=== PATIENT | male | born 1970 | race Caucasian/White ===

== ENCOUNTER 2018-08-22 20:16 | Emergency (ER) | payer SELFPAY ==
[~2018-08-22] VITALS: Ht 172.7 cm; Wt 79.4 kg
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
--- OUTSIDE RECORDS SUMMARY | 2018-08-22 20:20 | XMS REPORT ---
Author Author [facility] Address Unknown Phone Unavailable Care Team Providers Care Cnc Router Operator Name Role Phone Unavailable Unavailable Problems This patient has no known problems. Allergies, Adverse Reactions, Alerts This patient has no known allergies or adverse reactions. Medications This patient has no known medications. Encounters Start Date/Time End Date/Time Encounter Type Admission Type Attending [facility] Facility Care Department Encounter ID 2018-10-29 00:00:00 2018-10-29 00:00:00 Outpatient [facility] [id number] 2018-07-26 10:42:11 2018-07-26 10:42:11 Outpatient [facility] [id number] 2018-07-26 09:46:42 2018-07-26 09:46:42 Outpatient [facility] [id number]
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
--- NOTE | 2018-08-22 22:12 | Diagnostic Imaging Report ---
Exam: right foot 3 views History: pain Comparison: None. Findings: No fracture or malalignment. Joint spaces preserved. Plantar calcaneal spur. Impression: No acute osseous abnormality Signed by: Dr. Ed Wilcox M.D. on 08/22/2018 10:09 PM
[2018-08-23 01:59] VITALS: BP 138/89
== END 2018-08-22 22:36 | disposition home or self-care (01) ==
LOC: ER 20:16
DX: S90.31XA Contusion of right foot, initial encounter (principal); M79.671 Pain in right foot; W20.8XXA Other cause of strike by thrown, projected or falling object, initial encounter; Y92.008 Other place in unspecified non-institutional (private) residence as the place of occurrence of the external cause

== ENCOUNTER 2019-02-27 11:56 | Emergency (ER) | payer SELFPAY ==
[~2019-02-27] VITALS: Ht 172.7 cm; Wt 79.4 kg
[2019-02-27] MEDS ORDERED: TETANUS/DIPHTHERIA TOX ADULT 0.5 ML SYR IM ONE (12:30)
[2019-02-27] MEDS ORDERED: LIDOCAINE 1% W/EPINEPHRINE 20 ML VIAL INJ ONE (12:30)
[2019-02-27 12:48] VITALS: BP 130/78
[2019-02-27] MEDS ORDERED: BACITRACIN ZINC 0.9GM TP ONE (13:00)
== END 2019-02-27 13:25 | disposition home or self-care (01) ==
LOC: ER 11:56
DX: S81.011A Laceration without foreign body, right knee, initial encounter (principal); W45.8XXA Other foreign body or object entering through skin, initial encounter; Y93.19 Activity, other involving water and watercraft; Y92.828 Other wilderness area as the place of occurrence of the external cause
CPT/HCPCS: 90471; 90714; 99283

== ENCOUNTER 2021-10-28 15:51 | Emergency (ER) | payer SELFPAY ==
[~2021-10-28] VITALS: Ht 172.7 cm; Wt 79.4 kg
[2021-10-28] MEDS ORDERED: DIPHENHYDRAMINE HCL 25 MG CAP PO ONE (16:15)
[2021-10-28] MEDS ORDERED: FAMOTIDINE 20 MG TAB PO ONE (16:15)
[2021-10-28] MEDS ORDERED: DEXAMETHASONE SOD PHOS 10 MG/1 ML VIAL IM ONE (16:15)
== END 2021-10-28 16:53 | disposition home or self-care (01) ==
LOC: ER 15:55
DX: R21 Rash and other nonspecific skin eruption (principal); L25.9 Unspecified contact dermatitis, unspecified cause; E78.5 Hyperlipidemia, unspecified; M54.9 Dorsalgia, unspecified; G89.29 Other chronic pain
CPT/HCPCS: 99283; J1100